=== PATIENT | female | born 1995 | race Caucasian/White ===

== ENCOUNTER 2022-07-31 16:48 | Emergency (ER) | payer BC ==
[2022-07-31] MEDS ORDERED: TYLENOL EXTRA STRENGTH 500 MG PO STA (16:57)
[2022-07-31] MEDS ORDERED: Sodium Chloride 0.9% 1000 ML 1,000 ML IV STA ×2 (16:58→17:32)
[2022-07-31] MEDS ORDERED: Zofran 4 MG/2 ML VIAL ONE (17:05)
[2022-07-31] MEDS ORDERED: TYLENOL EXTRA STRENGTH 500 MG ONE (17:06)
[2022-07-31] MEDS ORDERED: Sodium Chloride 0.9% 1000 ML 1,000 ML ONE ×3 (17:06→22:26)
[2022-07-31] MEDS ORDERED: Zofran 4 MG/2 ML VIAL IV ONE (17:07)
[2022-07-31] MEDS ORDERED: Invanz *** 1 G in Sodium Chloride 100ML MINI-BAG PLUS 100 ML IV STA (17:17)
[2022-07-31] MEDS ORDERED: TORAdol 30 mg Injection IV ONE (17:55)
[2022-07-31] MEDS ORDERED: TORAdol 30 mg Injection ONE (17:55)
[2022-07-31 17:59] LABS: Absolute Neutrophil Ct (ANC) 14.26 x10^3/uL (1.4-6.9); BASOPHIL % 0.3 % (0.0-0.4); Basophil (Absolute #) 0.05 x10^3/uL (0-0.4); Eosinophil % 0.4 % (0.00-5.0); Eosinophil (Absolute #) 0.07 x10^3/uL (0-0.5); Hemoglobin 11.5 g/dL (12.0-16.0); IMMATURE GRAN # 0.07 x10^3u/L (0.00-0.03); IMMATURE GRAN % 0.4 % (0.00-0.4); Lymphocyte (Absolute #) 0.49 x10^3/uL (1.0-4.6); Lymphocytes % 3.1 % (24.0-44.0); Mean Cell Volume 86.6 fL (78-100); Mean Corpuscular Hemoglobin 26.2 pg (26-32); Mean Corpuscular Hgb Concent. 30.3 g/dL (32-36); Monocyte (Absolute #) 0.84 x10^3/uL (0.0-1.3); Monocytes % 5.3 % (0.0-12.0); Neutrophil % 90.5 % (36.0-66.0); Platelet Count 240 x10^3/uL (150-450); Red Blood Count 4.39 x10^6/uL (4.1-5.4); Red Cell Distribution Width 16.1 % (11.5-14.0); White Blood Count 15.8 x10^3/uL (4.0-10.5)
[2022-07-31 18:11] LABS: ALBUMIN 4.4 g/dL (3.5-5.0); ALKALINE PHOSPHATASE 105 U/L (38-126); AMYLASE 35 U/L (30-110); ANION GAP 21.3 MEQ/L (5-15); BLOOD UREA NITROGEN 12 mg/dL (7-17); CHLORIDE 101 mmol/L (98-107); Carbon Dioxide 18 mmol/L (22-30); Creatinine 1 0.73 mg/dL (0.52-1.04); EST GLOMERULAR FILTRATION RATE > 60.0 ML/MIN; Glucose 117 mg/dL (74-106); HCG SERUM TEST NEGATIVE (NEGATIVE); LIPASE 28 U/L (23-300); Potassium 3.8 mmol/L (3.5-5.1); SGOT/AST 31 U/L (14-36); SGPT/ALT 24 U/L (0-35); SODIUM 137 mmol/L (137-145); Total Protein 8.4 g/dL (6.3-8.2)
[2022-07-31 18:32] LABS: INFLUENZA A NEGATIVE (NEGATIVE); INFLUENZA B NEGATIVE (NEGATIVE); RESPIRATORY SYNCTIAL VIRUS NEGATIVE (NEGATIVE); SARS-CoV-2 Xpert Express NEGATIVE (NEGATIVE)
--- NOTE | 2022-07-31 19:43 | ERPHSYRPT ---
- History of Present Illness Source: patient Exam Limitations: no limitations Patient Subjective Stated Complaint: PT SENT FROM OP SURGERY FOR INCREASE HR AND FEVER, SHE WAS TO GET FLUIDS Triage Nursing Assessment: PT ALERT, SKIN HOT, MOIST, PINK, RESP EASY, NO EDEMA NOTED, HAS OLD INCISION TO LEFT LOWER BACK THAT IS WITHOUT REDNESS OR SWELLING, NO DRAINAGE, Physician History: 27 yo WF w fever x2 days. 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 She had a lap connie at [facility] 3 months ago and has had a long and difficult recovery which has included pancreatitis and multiple procedures. Pt has nausea but denies vomiting/diarrhea/cough/coryza/ST/dysuria/hematuria. Timing/Duration: other (2 days) Fever Severity: severe Fever Therapy SCOURING PADS SUPERVISOR: none Associated Symptoms: denies symptoms Allergies/Adverse Reactions: ceftriaxone [From Rocephin] Allergy (Intermediate, Verified 07/31/22 16:21) Hives hydrocodone Allergy (Intermediate, Verified 07/31/22 16:21) Hives Home Medications: Unobtainable 07/31/22 [History] Hx Tetanus, Diphtheria Vaccination/Date Given: No Hx Influenza Vaccination/Date Given: Yes Hx Pneumococcal Vaccination/Date Given: Yes Travel Risk - International Travel Have you traveled outside of the country in past 3 weeks: No - Coronavirus Screening Are you exhibiting any of the following symptoms?: Yes Symptoms: Fever, Vomiting/Diarrhea Close contact with a COVID-19 positive Pt in past 14-21 Days: No - Vaccine Status Have you recieved a Covid-19 vaccination: No Surety Bond Agent: Unknown - Vaccination Dates Dates if Unknown: ? - Review of Systems Constitutional: No Symptoms, Fever, Chills, Malaise Eyes: No Symptoms Ears, Nose, & Throat: No Symptoms Respiratory: No Symptoms Cardiac: No Symptoms Abdominal/Gastrointestinal: No Symptoms, Nausea Genitourinary Symptoms: No Symptoms Musculoskeletal: No Symptoms Skin: No Symptoms Neurological: No Symptoms Psychological: No Symptoms Endocrine: No Symptoms Hematologic/Lymphatic: No Symptoms Immunological/Allergic: No Symptoms - Past Medical History Pertinent Past Medical History: Yes GI Medical History: Pancreatitis Other Medical History: HX OF DIABETES AND HYPERTENSION THAT IS RESOLVED - Past Surgical History Past Surgical History: Yes Gastrointestinal: Cholecystectomy, Pancreatic Surgery - Social History Smoking Status: Never smoker Exposure to second hand smoke: No Drug Use: none Patient Lives Alone: No - Female History Hx Last Menstrual Period: JULY Hx Now: No - Nursing Vital Signs Nursing Vital Signs: Initial Vital Signs Temperature 103.1 F 07/31/22 16:51 Pulse Rate 144 H 07/31/22 16:51 Respiratory Rate 20 07/31/22 16:51 Blood Pressure 146/104 07/31/22 16:51 O2 Sat by Pulse Oximetry 100 07/31/22 16:51 Pain Scale Pain Intensity 0 Tachy/febrile/hypertensive - Physical Exam General Appearance: mild distress Eye Exam: PERRL/EOMI, eyes nml inspection ENT Exam: normal ENT inspection, no apparent trauma Neck Exam: normal inspection, non-tender, supple, full range of motion, trachea midline Respiratory Exam: normal breath sounds, lungs clear, no respiratory distress Cardiovascular/Chest Exam: normal peripheral pulses, tachycardia, No murmur Gastrointestinal/Abdominal Exam: soft, non tender, no distention Extremity Exam: non-tender, normal range of motion, normal inspection, normal capillary refill, no calf tenderness Neurologic Exam: alert, oriented x 3, cooperative, energy control officer II-XII nml as tested, normal mood/affect, nml cerebellar function, nml station & gait, sensation nml Skin Exam: normal color, warm, dry, No rash Lymphatic: No adenopathy SpO2 Interpretation: normal SpO2: 98 O2 Delivery: Room Air - Course Nursing assessment & vital signs reviewed: Yes EKG Interpreted by Me: RATE (EKG/Sinus tach/Normal QT-QTc/No acute ST segment c hanges) - CT Exams Chest CT Interpretation: Discussed w/radiologist (CT chest w IV contrast neg) Abdomen/Pelvis CT Interpretation: Discussed w/radiologist (AB-pelvis w contrast-L retro- peritoneal fluid collection) Ordered Tests: Active Orders 24 hr Category Date Time Status Machine Gunner STAT Care 07/31/22 17:03 Completed EKG-ER Only STAT Care 07/31/22 17:03 Completed IV Insertion STAT Care 07/31/22 17:03 Completed IV Insertion-2nd Peripheral STAT Care 07/31/22 17:34 Completed ABDOMEN AND PELVIS W CONTRAST [CT] Stat Exams 07/31/22 18:14 Taken CHEST WITH CONTRAST [CT] Stat Exams 07/31/22 18:47 Taken AMYLASE Stat Lab 07/31/22 16:55 Completed BLOOD CULTURE Stat Lab 07/31/22 17:32 Received CBC W DIFF Stat Lab 07/31/22 16:55 Completed CMP Stat Lab 07/31/22 16:55 Completed HCG QUALITATIVE, SERUM Stat Lab 07/31/22 16:55 Completed LIPASE Stat Lab 07/31/22 16:55 Completed Lactic Acid Stat Lab 07/31/22 17:05 Completed Lactic Acid Stat Lab 07/31/22 19:16 Completed TROPONIN Q4H Lab 07/31/22 16:55 Completed TROPONIN Q4H Lab 07/31/22 20:45 Completed Medication Summary Discontinued Medications Generic Name Dose Route Start Last Admin Trade Name Freq PRN Reason Stop Dose Admin Acetaminophen 1,000 mg 07/31/22 16:57 07/31/22 17:07 Acetaminophen 500 Mg Tablet PO 07/31/22 16:58 1,000 mg Q4H PRN STA Administration Acetaminophen Confirm 07/31/22 17:06 Acetaminophen 500 Mg Tablet Administered 07/31/22 17:07 Dose 1,000 mg .ROUTE .STK-MED ONE Sodium Chloride 1,000 mls @ 999 mls/hr 07/31/22 16:58 07/31/22 18:08 Sodium Chloride 0.9% 1000 Ml IV 07/31/22 17:58 Infused .Q1H1M STA Infusion Sodium Chloride Confirm 07/31/22 17:06 Sodium Chloride 0.9% 1000 Ml Administered 07/31/22 17:07 Dose 1,000 mls @ ud .ROUTE .STK-MED ONE Ertapenem 1 g/ Sodium Chloride 100 mls @ 200 mls/hr 07/31/22 17:17 07/31/22 17:37 IV 07/31/22 17:46 200 mls/hr STAT STA Administration Sodium Chloride 1,000 mls @ 999 mls/hr 07/31/22 17:32 07/31/22 18:38 Sodium Chloride 0.9% 1000 Ml IV 07/31/22 18:32 Infused .Q1H1M STA Infusion Sodium Chloride Confirm 07/31/22 17:35 Sodium Chloride 0.9% 1000 Ml Administered 07/31/22 17:36 Dose 1,000 mls @ ud .ROUTE .STK-MED ONE Vancomycin HCl 1 gm in 200 mls @ 125 mls/hr 07/31/22 22:24 07/31/22 22:25 Vancomycin 1 Gram/200 Ml Bag IV 07/31/22 23:59 125 ml/hr STAT ONE 125 mls/hr Administration Sodium Chloride 1,000 mls @ 125 mls/hr 07/31/22 22:30 07/31/22 22:28 Sodium Chloride 0.9% 1000 Ml IV 08/30/22 22:29 125 mls/hr .Q8H VANESSA Administration Vancomycin HCl Confirm 07/31/22 22:23 Vancomycin 1 Gram/200 Ml Bag Administered 07/31/22 22:24 Dose 1 gm in 200 mls @ ud IV .STK-MED ONE Sodium Chloride Confirm 07/31/22 22:26 Sodium Chloride 0.9% 1000 Ml Administered 07/31/22 22:27 Dose 1,000 mls @ ud .ROUTE .STK-MED ONE Ketorolac Tromethamine 15 mg 07/31/22 17:55 07/31/22 17:56 Ketorolac Tromethamine 30 Mg/Ml Inj IV 07/31/22 17:56 15 mg STAT ONE Administration Ketorolac Tromethamine Confirm 07/31/22 17:55 Ketorolac Tromethamine 30 Mg/Ml Inj Administered 07/31/22 17:56 Dose 30 mg .ROUTE .STK-MED ONE Ondansetron HCl 4 mg 07/31/22 17:07 07/31/22 17:07 Ondansetron Hcl 4 Mg/2 Ml Vial IV 07/31/22 17:08 4 mg STAT ONE Administration Ondansetron HCl Confirm 07/31/22 17:05 Ondansetron Hcl 4 Mg/2 Ml Vial Administered 07/31/22 17:06 Dose 4 mg .ROUTE .STK-MED ONE Lab/Rad Data: Laboratory Result Diagrams 07/31/22 16:55 07/31/22 16:55 Laboratory Results 07/31/22 07/31/22 07/31/22 Range/Units 20:45 19:16 17:05 WBC (4.0-10.5) x10^3/uL RBC (4.1-5.4) x10^6/uL Hgb (12.0-16.0) g/dL Hct (35-47) % MCV (78-100) fL MCH (26-32) pg MCHC (32-36) g/dL RDW (11.5-14.0) % Plt Count (150-450) x10^3/uL MPV (7.5-11.0) fL Gran % (36.0-66.0) % Immature Gran % (Auto) (0.00-0.4) % Nucleat RBC Rel Count (0.00-0.1) % Eos # (Auto) (0-0.5) x10^3/uL Immature Gran # (Auto) (0.00-0.03) x10^3u/L Absolute Lymphs (auto) (1.0-4.6) x10^3/uL Absolute Monos (auto) (0.0-1.3) x10^3/uL Absolute Nucleated RBC (0.00-0.01) x10^3u/L Lymphocytes % (24.0-44.0) % Monocytes % (0.0-12.0) % Eosinophils % (0.00-5.0) % Basophils % (0.0-0.4) % Absolute Granulocytes (1.4-6.9) x10^3/uL Basophils # (0-0.4) x10^3/uL Sodium (137-145) mmol/L Potassium (3.5-5.1) mmol/L Chloride (98-107) mmol/L Carbon Dioxide (22-30) mmol/L Anion Gap (5-15) MEQ/L BUN (7-17) mg/dL Creatinine (0.52-1.04) mg/dL Estimated GFR ML/MIN Glucose (74-106) mg/dL Lactic Acid 1.0 2.2 H (0.4-2.0) Calcium (8.4-10.2) mg/dL Total Bilirubin (0.2-1.3) mg/dL AST (14-36) U/L ALT (0-35) U/L Alkaline Phosphatase (38-126) U/L Troponin I < 0.012 (0.000-0.034) ng/mL Serum Total Protein (6.3-8.2) g/dL Albumin (3.5-5.0) g/dL Amylase (30-110) U/L Lipase (23-300) U/L Serum HCG, Qual (NEGATIVE) Influenza Type A Ag (NEGATIVE) Influenza Type B Ag (NEGATIVE) RSV (PCR) (NEGATIVE) SARS-CoV-2 (PCR) (NEGATIVE) Group A Strep Antibody (NEGATIVE) 07/31/22 07/31/22 07/31/22 Range/Units 16:55 16:55 16:55 WBC (4.0-10.5) x10^3/uL RBC (4.1-5.4) x10^6/uL Hgb (12.0-16.0) g/dL Hct (35-47) % MCV (78-100) fL MCH (26-32) pg MCHC (32-36) g/dL RDW (11.5-14.0) % Plt Count (150-450) x10^3/uL MPV (7.5-11.0) fL Gran % (36.0-66.0) % Immature Gran % (Auto) (0.00-0.4) % Nucleat RBC Rel Count (0.00-0.1) % Eos # (Auto) (0-0.5) x10^3/uL Immature Gran # (Auto) (0.00-0.03) x10^3u/L Absolute Lymphs (auto) (1.0-4.6) x10^3/uL Absolute Monos (auto) (0.0-1.3) x10^3/uL Absolute Nucleated RBC (0.00-0.01) x10^3u/L Lymphocytes % (24.0-44.0) % Monocytes % (0.0-12.0) % Eosinophils % (0.00-5.0) % Basophils % (0.0-0.4) % Absolute Granulocytes (1.4-6.9) x10^3/uL Basophils # (0-0.4) x10^3/uL Sodium (137-145) mmol/L Potassium (3.5-5.1) mmol/L Chloride (98-107) mmol/L Carbon Dioxide (22-30) mmol/L Anion Gap (5-15) MEQ/L BUN (7-17) mg/dL Creatinine (0.52-1.04) mg/dL Estimated GFR ML/MIN Glucose (74-106) mg/dL Lactic Acid (0.4-2.0) Calcium (8.4-10.2) mg/dL Total Bilirubin (0.2-1.3) mg/dL AST (14-36) U/L ALT (0-35) U/L Alkaline Phosphatase (38-126) U/L Troponin I (0.000-0.034) ng/mL Serum Total Protein (6.3-8.2) g/dL Albumin (3.5-5.0) g/dL Amylase (30-110) U/L Lipase (23-300) U/L Serum HCG, Qual NEGATIVE (NEGATIVE) Influenza Type A Ag NEGATIVE (NEGATIVE) Influenza Type B Ag NEGATIVE (NEGATIVE) RSV (PCR) NEGATIVE (NEGATIVE) SARS-CoV-2 (PCR) NEGATIVE (NEGATIVE) Group A Strep Antibody NOT DETECTED (NEGATIVE) 07/31/22 07/31/22 07/31/22 Range/Units 16:55 16:55 16:55 WBC 15.8 H (4.0-10.5) x10^3/uL RBC 4.39 (4.1-5.4) x10^6/uL Hgb 11.5 L (12.0-16.0) g/dL Hct 38.0 (35-47) % MCV 86.6 (78-100) fL MCH 26.2 (26-32) pg MCHC 30.3 L (32-36) g/dL RDW 16.1 H (11.5-14.0) % Plt Count 240 (150-450) x10^3/uL MPV 12.0 H (7.5-11.0) fL Gran % 90.5 H (36.0-66.0) % Immature Gran % (Auto) 0.4 (0.00-0.4) % Nucleat RBC Rel Count 0.0 (0.00-0.1) % Eos # (Auto) 0.07 (0-0.5) x10^3/uL Immature Gran # (Auto) 0.07 H (0.00-0.03) x10^3u/L Absolute Lymphs (auto) 0.49 L (1.0-4.6) x10^3/uL Absolute Monos (auto) 0.84 (0.0-1.3) x10^3/uL Absolute Nucleated RBC 0.00 (0.00-0.01) x10^3u/L Lymphocytes % 3.1 L (24.0-44.0) % Monocytes % 5.3 (0.0-12.0) % Eosinophils % 0.4 (0.00-5.0) % Basophils % 0.3 (0.0-0.4) % Absolute Granulocytes 14.26 H (1.4-6.9) x10^3/uL Basophils # 0.05 (0-0.4) x10^3/uL Sodium 137 (137-145) mmol/L Potassium 3.8 (3.5-5.1) mmol/L Chloride 101 (98-107) mmol/L Carbon Dioxide 18 L (22-30) mmol/L Anion Gap 21.3 H (5-15) MEQ/L BUN 12 (7-17) mg/dL Creatinine 0.73 (0.52-1.04) mg/dL Estimated GFR > 60.0 ML/MIN Glucose 117 H (74-106) mg/dL Lactic Acid (0.4-2.0) Calcium 9.0 (8.4-10.2) mg/dL Total Bilirubin 1.40 H (0.2-1.3) mg/dL AST 31 (14-36) U/L ALT 24 (0-35) U/L Alkaline Phosphatase 105 (38-126) U/L Troponin I < 0.012 (0.000-0.034) ng/mL Serum Total Protein 8.4 H (6.3-8.2) g/dL Albumin 4.4 (3.5-5.0) g/dL Amylase 35 (30-110) U/L Lipase 28 (23-300) U/L Serum HCG, Qual (NEGATIVE) Influenza Type A Ag (NEGATIVE) Influenza Type B Ag (NEGATIVE) RSV (PCR) (NEGATIVE) SARS-CoV-2 (PCR) (NEGATIVE) Group A Strep Antibody (NEGATIVE) - Progress Progress Note: 07/31/22 23:22 Nursing note and vital signs reviewed No food or housing insecurities noted 1L NS bolus x2 1gm IV Invanz CT scan result reviewed and shared w pt/ Additional history per Pt accepted by Dr. Stephen at [facility] 1gm IV Vanc per Dr. Stephen Pt stable when [facility] assumed care of pt Counseled pt/family regarding: lab results, diagnosis, rad results Medical Desision Making - Independent Historian Additional History obtained from: Spouse - Discussion of managment Care discussed with:: hospitalist Reviewed:: Test results Agreed on:: Treatment plan Will see patient: in hospital - Diagnostic Testing Diagnostic test were ordered, analyzed, and reviewed by me: Yes Radiological Interpretation: Discussed w/ radiologist - Risk of complications The pt has a high risk of morbidity or mortality based on: Drug therapy requiring intensive monitoring for toxicity, Need for major surgery in patient with known risk factors, Need for emergency major surgery, Decision regarding hospitilization or escalation of hosp level of care, Decision not to resucitate, Need for parental consent - Departure Departure Disposition: Transfer Clinical Impression: Retroperitoneal abscess Condition: Stable Critical Care Time: Yes Critical Care Time(excluding separately billable procedures): Critical 75-104 mins Referrals: MARJORIE JOHNSON MD [Primary Care Provider] - Follow up/PCP as directed
[2022-07-31] MEDS ORDERED: VANCOMYCIN 1 GRAM/200 ML BAG 1 GM/200 ML PIGGYBACK IV ONE ×2 (22:23→22:24)
[2022-07-31] MEDS ORDERED: Sodium Chloride 0.9% 1000 ML 1,000 ML IV SCH (22:30)
[2022-07-31 22:48] VITALS: BP 145/80; PULSE 104
[2022-07-31 23:25] VITALS: O2SAT 98
--- NOTE | 2022-08-01 08:40 | XRAY ---
Indication: Fever. Multiple contiguous axial images obtained through the chest using 80 cc Isovue 370 contrast. Comparison: None Lungs inflated and clear with incidental minimal bilateral dependent atelectasis. Heart not enlarged. Aorta is normal course and caliber. No pathologic mediastinal/hilar lymphadenopathy. Bony thorax intact. CT abdomen/pelvis reported separately. Impression: Normal CT chest with contrast exam.
--- NOTE | 2022-08-01 08:48 | XRAY ---
Indication: Fever. Status post cholecystectomy 3 weeks ago. Multiple contiguous axial images obtained through the abdomen and pelvis using 80 cc Isovue 370 contrast. Comparison: None CT chest reported separate. Noncontrasted stomach and bowel loops appear nonobstructed with normal appendix. There is a left retroperitoneal loculated fluid collection with air bubble measuring at least 2.9 x 9.1 x 7.8 cm in greatest AP, transverse, and CC projections concern for abscess. Tiny left colic and small 1.6 x 3.2 x 1.0 cm left lower back subcutaneous fluid collections appears to communicate with the abscess. Incidental 21 cm fatty hepatomegaly, 13 cm splenomegaly, nonobstructing right renal punctate calculus, 5.8 cm right ovary cyst, and cholecystectomy. Remaining pancreas, adrenal glands, kidneys, ureters, bladder, uterus, and aorta are unremarkable. Small centimeter/subcentimeter periaortic nodes, none pathologically enlarged. Osseous structures intact with minimal/mild degenerative changes throughout the spine and minimal levoscoliosis centered at L4. Impression: 1. Left retroperitoneal abscess as detailed. Tiny left colic and left lower back fluid collections appears to communicate with the abscess. 2. 5.8 cm right ovary cyst better evaluated with sonogram if clinically warranted. 3. Small periaortic nodes presumed reactive. 4. Incidental fatty hepatomegaly, splenomegaly, and chronic bony findings.
== END 2022-07-31 23:10 | disposition short-term general hospital (02) ==
LOC: ED 16:48 → EDSTATUS 16:48 → ED 23:10
DX: K68.19 Other retroperitoneal abscess (principal); R50.9 Fever, unspecified; R00.0 Tachycardia, unspecified; R11.0 Nausea
CPT/HCPCS: 0241U; 36000; 36415; 71260; 74177; 80053; 82150; 83605; 83690; 84484; 84703; 85025; 87040; 87651; 93005; 93041; 96360; 96361; 96365; 96367; 96374; 99285; 99291; 99292; J1335; J1885; J2405; A9270-GY; J3370